=== PATIENT | male | born 1970 | race Caucasian/White ===

== ENCOUNTER 2016-09-26 06:57 | Day surgery (SDC) | payer OTHER ==
[~2016-09-26] VITALS: Ht 182.9 cm; Wt 82.1 kg
[~2016-09-26 06:57] MED LIST: BENTYL 20MG20 MG/TAB PO; BICARSIM FORTE1 TA1; CLARITIN 1010 MG/TAB PO; FENTANYL 50MCG TD; FLAGYL500 MG PO; HUMIRA40 MG/0.1 SQ; IMITREX 6M6 MG/0.5 M SQ; PREDNISONE10 MG PO; SYNTHROID0.2 MG/TAB PO; ZESTRIL 20MG TA20 MG PO
[2016-09-26 07:27] VITALS: BP 139/101; PULSE 98; TEMP 98.4
[2016-09-26] MEDS ORDERED: SYNTHROID0.175 MG PO (07:47)
[2016-09-26] MEDS ORDERED: AVINZA60 MG PO (07:49)
[2016-09-26] MEDS ORDERED: MORPHINE 1515 MG/TAB PO (07:49)
[2016-09-26] MEDS ORDERED: MS CONTIN 115 MG/TAB PO (07:50)
[2016-09-26] MEDS ORDERED: MS CONTIN 660 MG/TAB PO ×2 (07:51→07:53)
[2016-09-26 11:15] VITALS: BP 116/68; PULSE 68
[2016-09-26 11:30] VITALS: BP 111/66; PULSE 76
[2016-09-26 11:45] VITALS: BP 119/75; PULSE 76
[2016-09-26 12:10] VITALS: BP 125/85; PULSE 77
[2016-09-26 13:53] VITALS: BP 106/68; PULSE 68; TEMP 97.7
== END 2016-09-26 12:40 | disposition home or self-care (01) ==
LOC: SDCO 06:57
DX: T84.84XA Pain due to internal orthopedic prosthetic devices, implants and grafts, initial encounter (principal); M19.90 Unspecified osteoarthritis, unspecified site; Z98.1 Arthrodesis status; Q66.89 Other specified congenital deformities of feet; I10 Essential (primary) hypertension; E03.9 Hypothyroidism, unspecified; K50.90 Crohn's disease, unspecified, without complications; G43.909 Migraine, unspecified, not intractable, without status migrainosus
CPT/HCPCS: J1100; J2250; J2405; J2704; J2795; J3010; J7120

== ENCOUNTER 2017-01-04 21:18 | Emergency (ER) | payer OTHER ==
[~2017-01-04] VITALS: Ht 182.9 cm; Wt 82.7 kg
[~2017-01-04 21:18] MED LIST changes: +AVINZA60 MG PO; +MORPHINE 1515 MG/TAB PO; +MS CONTIN 115 MG/TAB PO; +MS CONTIN 660 MG/TAB PO; +SYNTHROID0.175 MG PO
[2017-01-04 21:20] VITALS: BP 142/94; TEMP 97.9
[2017-01-04 22:00] LABS: BASO # 0.1 (0.0-0.2); BASO % 0.7 % (0.0-2.0); EOS # 0.1 (0.0-0.7); GRAN # 8.4 (1.4-6.5); GRAN % 68.8 % (42.2-75.2); HEMATOCRIT 49.8 % (42.0-52.0); HEMOGLOBIN 18.4 g/dl (13.5-18.0); LYMPH # 2.6 (1.2-3.4); LYMPH % 21.4 % (20.0-51.0); MEAN CELL VOLUME 84 fl (80.0-100.0); MEAN CORPUSCULAR HEMOGLOBIN 31 pg (27.0-31.0); MEAN CORPUSCULAR HGB CONC 37 g/dl (33.0-37.0); MEAN PLATELET VOLUME 9.1 fl (7.4-10.4); MONO # 0.9 (0.1-0.6); MONO % 7.7 % (1.7-9.3); PLATELET COUNT 398 K/mm3 (130-400); RED BLOOD COUNT 5.96 M/mm3 (4.20-5.60); REDCELL DISTRIBUTION WIDTH-CV 12.2 % (11.5-14.5); WHITE BLOOD COUNT 12.2 K/mm3 (4.8-10.8)
[2017-01-04 22:32] LABS: ADJUSTED CALCIUM 8.9 mg/dL (8.4-10.2); ALBUMIN 4.8 gm/dL (3.5-5.0); BILIRUBIN,TOTAL 2.2 mg/dL (0.0-1.0); CALCIUM 9.5 mg/dL (8.4-10.2); CREATININE, serum 0.8 mg/dL (0.66-1.25); POTASSIUM 3.7 mmol/L (3.4-5.0); TOTAL PROTEIN 8.2 gm/dL (6.4-8.2)
[2017-01-04 23:50] VITALS: PULSE 70
== END 2017-01-04 23:50 | disposition home or self-care (01) ==
LOC: COL.ER 21:18
PROVIDERS: Emergency Medicine
DX: E86.9 Volume depletion, unspecified (principal); R10.9 Unspecified abdominal pain; K50.90 Crohn's disease, unspecified, without complications; G43.909 Migraine, unspecified, not intractable, without status migrainosus
CPT/HCPCS: J2765; J2930; J3010; J7030; Q9967

== ENCOUNTER → 2018-08-29 | Outpatient (CLI) | payer OTHER ==
[~2018-08-29] MED LIST changes: +ZITHROMAX500 M2 PO
== END ==
LOC: MHCPAIN 09:02
DX: G89.29 Other chronic pain (principal); M79.2 Neuralgia and neuritis, unspecified; M25.579 Pain in unspecified ankle and joints of unspecified foot
CPT/HCPCS: G0463

== ENCOUNTER → 2018-08-30 | Outpatient (CLI) | payer OTHER | LOC: COL.RAD 07:57 | DX: K50.912 Crohn's disease, unspecified, with intestinal obstruction (principal) | CPT/HCPCS: A9585 ==

== ENCOUNTER 2018-09-03 12:52 | Inpatient (IN) | payer OTHER ==
[2018-09-03] VITALS (10 sets, daily range): BP systolic 109–117; BP diastolic 59–84; PULSE 71–95; TEMP 98.1–99.2
[~2018-09-03] VITALS: Ht 182.9 cm; Wt 77.3 kg
[2018-09-03 13:38] LABS: BASO # 0.1 (0.0-0.2); BASO % 0.4 % (0.0-2.0); EOS # 0.1 (0.0-0.7); EOS % 0.6 % (0-4.0); GRAN % 77.9 % (42.2-75.2); HEMOGLOBIN 15.2 g/dl (13.5-18.0); LYMPH # 1.6 (1.2-3.4); MEAN CELL VOLUME 84 fl (80.0-100.0); MEAN CORPUSCULAR HEMOGLOBIN 30 pg (27.0-31.0); MEAN CORPUSCULAR HGB CONC 35 g/dl (33.0-37.0); MONO # 1.4 (0.1-0.6); MONO % 9.8 % (1.7-9.3); PLATELET COUNT 350 K/mm3 (130-400); REDCELL DISTRIBUTION WIDTH-CV 12.3 % (11.5-14.5)
[2018-09-03 13:46] LABS: ALBUMIN 3.8 gm/dL (3.5-5.0); BILIRUBIN,TOTAL 1.4 mg/dL (0.0-1.0); CALCIUM 8.8 mg/dL (8.4-10.2); CREATININE, serum 0.85 (0.66-1.25); POTASSIUM 3.3 mmol/L (3.4-5.0); TOTAL PROTEIN 7.1 gm/dL (6.4-8.2)
[2018-09-03 15:27] LABS: COLLECTION METHOD CLEAN CATCH
[2018-09-03] MEDS ORDERED: FLAGYL500 MG PO (15:31)
[2018-09-03] MEDS ORDERED: CANASA 1000MG1000 MG RC (15:32)
[2018-09-03 15:33] LABS: MUCOUS Present /lpf; PH 5 (5-8); SQUAMOUS EPITHELIAL 0-2 /hpf; URINE APPEARANCE Clear; URINE BACTERIA Rare /hpf; URINE BILIRUBIN Negative (NEGATIVE); URINE BLOOD 1+ (NEGATIVE); URINE COLOR Yellow; URINE GLUCOSE Negative (NEGATIVE); URINE KETONE Negative (NEGATIVE); URINE LEUKOCYTE ESTERASE Negative (NEGATIVE); URINE NITRATE Negative (NEGATIVE); URINE PROTEIN(semi-quant) Negative (NEGATIVE); URINE UROBILINOGEN Negative (NEGATIVE)
--- NOTE | 2018-09-03 17:15 | NUR ---
Pt arrived to floor at this time via bed with OR staff. Alert and oriented. Requesting ice water and jello. Minimal scant drainage to mirlande pad. Denies apin. VSS. IVF to RFA with potassium infusing. will ocntinue to monitor.
--- NOTE | 2018-09-03 18:27 | NUR ---
Pt doing well. Taking PO well. Changed mirlande gauze from SS drainage. Pt reports pain to area, PRN pain meds provided per request. Will give bedside shift report to nightshift nurse who will resume care.
--- NOTE | 2018-09-03 20:20 | NUR ---
Pt. sitting up in bed watchint tv at this time. Pt. is A&OX3, assessment complete. INT to rt. hand patent. Pt. reports pain at a 3 on pain scale at this time. Dressing to perirectal abscess changed at this time. 4X4's and mirlande pad. Pt. denies further needs, call light within reach.
[2018-09-04 04:11] VITALS: BP 109/67; PULSE 60; TEMP 97.9
--- NOTE | 2018-09-04 06:35 | NUR ---
Pt. slept off and on through the night. Pt. remains A&OX3. INT to rt. forearm patent. Pt. reports pain at a 2-3 this am. Gave pain meds per orders. Pt. denies further needs, call light within reach.
[2018-09-04 07:06] LABS: HEMOGLOBIN 13.4 g/dl (13.5-18.0); MEAN CELL VOLUME 87 fl (80.0-100.0); MEAN CORPUSCULAR HEMOGLOBIN 30 pg (27.0-31.0); MEAN CORPUSCULAR HGB CONC 34 g/dl (33.0-37.0); MEAN PLATELET VOLUME 9.2 fl (7.4-10.4); PLATELET COUNT 307 K/mm3 (130-400); RED BLOOD COUNT 4.46 M/mm3 (4.20-5.60); REDCELL DISTRIBUTION WIDTH-CV 12.5 % (11.5-14.5)
[2018-09-04 07:17] LABS: ALBUMIN 2.9 gm/dL (3.5-5.0); BILIRUBIN,TOTAL 1.1 mg/dL (0.0-1.0); CALCIUM 8.4 mg/dL (8.4-10.2); CREATININE, serum 0.84 (0.66-1.25); POTASSIUM 4.2 mmol/L (3.4-5.0); TOTAL PROTEIN 5.7 gm/dL (6.4-8.2)
[2018-09-04 07:45] VITALS: BP 114/71; PULSE 68; TEMP 97.9
[2018-09-04 07:57] LABS: BASOPHIL 3 % (0-2); EOSINOPHIL 4 % (0-4); LYMPHOCYTE 28 % (20.0-51.0); MYELOCYTE 1 % (0-0); NEUTROPHILS 54 % (42.0-75.2); PLATELET ESTIMATE NORMAL (NORMAL)
--- NOTE | 2018-09-04 10:03 | NUR ---
MARIZOL met with the patient to discuss a discharge plan. The patient lives in [place] with his and their two children. The patient does not use DME and reports independence with ADLs. The patient's PCP is Dr. Thornton on [facility]. The patient receives his [facility]. The patient reports no difficulties obtaining his medications. The patient does not have advanced directives in the EMR, but reports he does have them completed. The patient plans to return home upon discharge. There are no additional needs at this time.
--- NOTE | 2018-09-04 10:25 | NUR ---
Initial visit; Patient thanked Land Reclamation Specialist for looking in on him and offering God's blessings.
--- NOTE | 2018-09-04 10:30 | NUR ---
Patient alert and oriented, answers questions appropriately, see assessment. Abscess area with slight redness noted, scant amount serosanguinous drainage. C/o mild pain to abscess area. 4x4 and mesh panties in place. No other c/o at this time.
[2018-09-04] MEDS ORDERED: SUBOXONE 2 MG-01 TAB SL (11:10)
[2018-09-04] MEDS ORDERED: LYRICA200 MG PO (11:10)
[2018-09-04 11:32] VITALS: BP 118/67; PULSE 82; TEMP 98.4
--- NOTE | 2018-09-04 12:40 | NUR ---
Discharge instructions reviewed with patient, verbalized understanding. Discharged ambulatory to auto/home at 1240.
== END 2018-09-04 12:40 | disposition home or self-care (01) | DRG 854 ==
LOC: COL.ER 12:52 → SURG 14:26 → EDBEDREQ 14:37 → SURG 09-04 12:40
PROVIDERS: Family Medicine; Internal Medicine; ADMIT Surgery
PROC: 0J9B0ZZ Drainage of Perineum Subcutaneous Tissue and Fascia, Open Approach (ICD-10-PCS; principal; 2018-09-03 15:00)
DX: A41.9 Sepsis, unspecified organism (principal); K61.1 Rectal abscess; K50.914 Crohn's disease, unspecified, with abscess; E87.6 Hypokalemia; G89.29 Other chronic pain; E03.9 Hypothyroidism, unspecified; G43.909 Migraine, unspecified, not intractable, without status migrainosus; Z88.0 Allergy status to penicillin; Z88.9 Allergy status to unspecified drugs, medicaments and biological substances
CPT/HCPCS: 99222; 99232-AI; J1170; J1885; J2250; J2405; J2704; J3010; J3480; J7030; J7120

== ENCOUNTER 2018-12-29 09:36 | Emergency (ER) | payer OTHER ==
[~2018-12-29] VITALS: Ht 182.9 cm; Wt 75.0 kg
[~2018-12-29 09:36] MED LIST changes: +CANASA 1000MG1000 MG RC; +LYRICA200 MG PO; +SUBOXONE 2 MG-01 TAB SL
[2018-12-29] MEDS ORDERED: CIPRO 500MG TA500 MG PO (09:55)
[2018-12-29 09:56] VITALS: TEMP 98.4
[2018-12-29 10:26] LABS: BASO # 0.1 (0.0-0.2); BASO % 0.7 % (0.0-2.0); EOS # 0.1 (0.0-0.7); EOS % 0.8 % (0-4.0); GRAN # 11.7 (1.4-6.5); HEMATOCRIT 45.7 % (42.0-52.0); HEMOGLOBIN 15.9 g/dl (13.5-18.0); LYMPH # 1.6 (1.2-3.4); LYMPH % 10.7 % (20.0-51.0); MEAN CELL VOLUME 85 fl (80.0-100.0); MEAN CORPUSCULAR HEMOGLOBIN 29 pg (27.0-31.0); MEAN CORPUSCULAR HGB CONC 35 g/dl (33.0-37.0); MONO # 1.1 (0.1-0.6); MONO % 7.3 % (1.7-9.3); PLATELET COUNT 403 K/mm3 (130-400); REDCELL DISTRIBUTION WIDTH-CV 12.4 % (11.5-14.5)
[2018-12-29 10:27] LABS: PROTHROMBIN TIME 11.6 SECONDS (9.7-12.8)
[2018-12-29 10:29] LABS: PARTIAL THROMBOPLASTIN TIME 41.2 SECONDS (26.0-37.0)
[2018-12-29 10:36] LABS: ALBUMIN 4.1 gm/dL (3.5-5.0); BILIRUBIN,TOTAL 0.6 mg/dL (0.0-1.0); C-REACTIVE PROTEIN 0.8 mg/dL (0.0-0.9); CALCIUM 9.1 mg/dL (8.4-10.2); CREATININE, serum 0.74 (0.66-1.25); TOTAL PROTEIN 7.3 gm/dL (6.4-8.2)
[2018-12-29 11:48] LABS: COLLECTION METHOD CLEAN CATCH
[2018-12-29 12:03] LABS: MUCOUS Present /lpf; PH 5 (5-8); SQUAMOUS EPITHELIAL None Seen /hpf; URINE APPEARANCE Clear; URINE BACTERIA None Seen /hpf; URINE BILIRUBIN Negative (NEGATIVE); URINE BLOOD 1+ (NEGATIVE); URINE COLOR Yellow; URINE GLUCOSE Negative (NEGATIVE); URINE KETONE Negative (NEGATIVE); URINE LEUKOCYTE ESTERASE Negative (NEGATIVE); URINE NITRATE Negative (NEGATIVE); URINE PROTEIN(semi-quant) Negative (NEGATIVE); URINE RBC 0-2 /hpf; URINE UROBILINOGEN Negative (NEGATIVE)
[2018-12-29] MEDS ORDERED: PERCOCET 325 MG1 TA2 PO (16:09)
[2018-12-29 16:20] VITALS: BP 124/85; PULSE 96
[2019-01-02] MEDS ORDERED: NORCO 325 MG-51 TAB PO ×2 (17:37→17:39)
== END 2018-12-29 16:30 | disposition home or self-care (01) ==
LOC: COL.ER 09:36
PROVIDERS: Emergency Medicine
DX: L02.215 Cutaneous abscess of perineum (principal); K50.90 Crohn's disease, unspecified, without complications
CPT/HCPCS: A4216; J1170; J2405; J3010; J7030; J7120; Q9967

== ENCOUNTER 2019-01-16 07:32 | Inpatient (IN) | payer OTHER ==
[~2019-01-16] VITALS: Ht 182.9 cm; Wt 71.8 kg
[~2019-01-16 07:32] MED LIST changes: +CIPRO 500MG TA500 MG PO; +NORCO 325 MG-51 TAB PO; +PERCOCET 325 MG1 TA2 PO
[2019-01-16 08:12] LABS: BASO # 0.1 (0.0-0.2); BASO % 0.5 % (0.0-2.0); EOS # 0.2 (0.0-0.7); EOS % 1.1 % (0-4.0); GRAN # 10.9 (1.4-6.5); GRAN % 80.1 % (42.2-75.2); HEMOGLOBIN 15.5 g/dl (13.5-18.0); LYMPH # 1.6 (1.2-3.4); LYMPH % 11.4 % (20.0-51.0); MEAN CELL VOLUME 84 fl (80.0-100.0); MEAN CORPUSCULAR HEMOGLOBIN 30 pg (27.0-31.0); MEAN CORPUSCULAR HGB CONC 36 g/dl (33.0-37.0); MEAN PLATELET VOLUME 9.1 fl (7.4-10.4); MONO # 0.9 (0.1-0.6); MONO % 6.5 % (1.7-9.3); PLATELET COUNT 349 K/mm3 (130-400); RED BLOOD COUNT 5.14 M/mm3 (4.20-5.60); REDCELL DISTRIBUTION WIDTH-CV 12.8 % (11.5-14.5)
[2019-01-16 08:25] LABS: ALANINE AMINOTRANSFERASE 16 U/L (21-72); ALBUMIN 4.2 gm/dL (3.5-5.0); ALKALINE PHOSPHATASE 51 U/L (50-136); ANION GAP 9 mmol/L (7-16); AST,SGOT 28 U/L (15-37); BILIRUBIN,TOTAL 1.3 mg/dL (0.0-1.0); BLOOD UREA NITROGEN 11 mg/dL (9-20); C-REACTIVE PROTEIN 0.7 mg/dL (0.0-0.9); CARBON DIOXIDE 27 mmol/L (22-30); CHLORIDE 103 mmol/L (98-107); CREATININE, serum 0.84 (0.66-1.25); GLUCOSE 96 mg/dL (74-106); POTASSIUM 3.3 mmol/L (3.4-5.0); SODIUM 139 mmol/L (137-145); TOTAL PROTEIN 7.4 gm/dL (6.4-8.2)
[2019-01-16 08:32] LABS: LIPASE < 10 U/L (23-300)
[2019-01-16 09:21] LABS: COLLECTION METHOD CLEAN CATCH
[2019-01-16 09:38] LABS: MUCOUS Present /lpf; PH 6 (5-8); SQUAMOUS EPITHELIAL 0-2 /hpf; URINE APPEARANCE Clear; URINE BACTERIA None Seen /hpf; URINE BILIRUBIN Negative (NEGATIVE); URINE BLOOD Negative (NEGATIVE); URINE COLOR Yellow; URINE GLUCOSE Negative (NEGATIVE); URINE KETONE Negative (NEGATIVE); URINE LEUKOCYTE ESTERASE Negative (NEGATIVE); URINE NITRATE Negative (NEGATIVE); URINE PROTEIN(semi-quant) Negative (NEGATIVE); URINE UROBILINOGEN Negative (NEGATIVE)
--- NOTE | 2019-01-16 12:20 | NUR ---
Pt arrives to medical unit rm [id number] from ED via cart, awake and alert. Pt reports pain to left side and mid abd 9-10 out of 10 on pain scale. Telephone order received for PRN pain medication, nurse to dose. 4 mg Morphine administered. Call light in reach.
[2019-01-16 12:30] VITALS: BP 143/94; PULSE 66; TEMP 98
[2019-01-16 12:33] VITALS: BP 143/94; PULSE 66; TEMP 98
[2019-01-16 16:46] VITALS: BP 146/94; PULSE 71; TEMP 97.4
--- NOTE | 2019-01-16 17:31 | NUR ---
Pt reports PRN Dilaudid is decreasing pain but only to 7 out of 10 on pain scale, requesting medication for gas pain. Pt reports passing flatus about 20 minutes ago, no BM today. Provider notified. See orders.
[2019-01-16 19:24] VITALS: BP 141/89; PULSE 77; TEMP 98.8
--- NOTE | 2019-01-16 20:30 | NUR ---
Resting in bed. Assessment complete. Lungs clear. Heart sounds normal. Bowels active x4. Pulses strong throughout. No edema noted. Denies needs. Reports 7/10 pain at this time. Provided with PRN dilaudid. Call light in reach.
--- NOTE | 2019-01-16 22:21 | NUR ---
Patient reports headache from dilaudid. Would like toradol and pain medication to be changed back to morphine. Spoke with Dr. Wilcox. Will change orders.
[2019-01-16 23:57] VITALS: BP 133/85; PULSE 89; TEMP 98.3
--- NOTE | 2019-01-17 01:00 | NUR ---
Resting in bed asleep and snoring. Will reassess pain when awake. Call light in reach.
[2019-01-17 04:09] VITALS: BP 137/94; PULSE 62; TEMP 98
--- NOTE | 2019-01-17 06:21 | NUR ---
Patient required dilaudid for pain earlier in night which caused a headache. Was changed to morphine 2mg Q2H by Dr. Wilcox. Patient had also requested toradol. Order was added. Patient took x3 doses of morphine throughout night. Pain level with this AM dose is 8/10 in left ABD. Denies other needs at this time. Call light in reach.
[2019-01-17 06:42] LABS: BASO # 0.1 (0.0-0.2); BASO % 0.6 % (0.0-2.0); EOS # 0.2 (0.0-0.7); EOS % 1.6 % (0-4.0); GRAN # 7.2 (1.4-6.5); GRAN % 72.8 % (42.2-75.2); HEMATOCRIT 40.6 % (42.0-52.0); HEMOGLOBIN 14.2 g/dl (13.5-18.0); LYMPH # 1.5 (1.2-3.4); LYMPH % 14.7 % (20.0-51.0); MEAN CELL VOLUME 86 fl (80.0-100.0); MEAN CORPUSCULAR HEMOGLOBIN 30 pg (27.0-31.0); MEAN CORPUSCULAR HGB CONC 35 g/dl (33.0-37.0); MEAN PLATELET VOLUME 9.1 fl (7.4-10.4); MONO % 9.9 % (1.7-9.3); PLATELET COUNT 344 K/mm3 (130-400); RED BLOOD COUNT 4.75 M/mm3 (4.20-5.60); REDCELL DISTRIBUTION WIDTH-CV 12.9 % (11.5-14.5)
[2019-01-17 06:54] LABS: ALBUMIN 3.7 gm/dL (3.5-5.0); BILIRUBIN,TOTAL 0.7 mg/dL (0.0-1.0); CALCIUM 8.6 mg/dL (8.4-10.2); CREATININE, serum 0.83 (0.66-1.25); POTASSIUM 3.7 mmol/L (3.4-5.0); TOTAL PROTEIN 6.7 gm/dL (6.4-8.2)
--- NOTE | 2019-01-17 07:18 | NUR ---
Report given to UNA Lambert
[2019-01-17 07:41] VITALS: BP 152/93; PULSE 71; TEMP 98.1
--- NOTE | 2019-01-17 10:18 | NUR ---
SW met with the patient to discuss discharge plan. The patient lives in [place] with his (Sandie #[phone]) and their two children. He reports independence with ADLs and does not have any DME. The patient's PCP is Dr. Hossein Thornton at [facility] and he also receives his medications there or will utilize the [facility]. He reports no difficulties obtaining his meds. The patient does not have advanced directives in EMR, but he states that he does have them completed. He states that his is his DPOA-HC. The patient plans to return back home with his family upon discharge. No additional needs at this time.
--- NOTE | 2019-01-17 11:05 | NUR ---
First visit from the judicial administrative assistant. No needs right now.
--- NOTE | 2019-01-17 11:33 | NUR ---
Dr. Rodriguez called and he plans to see the pt later this afternoon.
[2019-01-17 11:44] VITALS: BP 141/90; PULSE 83; TEMP 98.7
--- NOTE | 2019-01-17 15:24 | NUR ---
Pt alert and oriented. Pt pain rated at 8/10 and is managed with PRN Morphine every 2 hours. Pt potassium being replaced per protocol. Pt has Seton drain in place and it leaks if pt milks the area between the anus and penis shaft. Pt skin CDI and no redness noted. Pt wears a pad for any leakage. Pt has had 1150 out this shift of dark yellow urine. Pt has call light in reach and denies needs at this time.
[2019-01-17 17:06] VITALS: BP 151/89; PULSE 78; TEMP 98.8
--- NOTE | 2019-01-17 18:06 | NUR ---
Pt resting in bed and eating some this shift. Pt has liquid bowel movement after meals. Pt reports on was dark brown to black in color. Hat is now in toilet to catch stools. Pt pain managed with PRN Morphine. Pt has call light in reach.
--- NOTE | 2019-01-17 18:48 | NUR ---
Pt report given to Clei HEART.
[2019-01-17 19:22] VITALS: BP 140/87; PULSE 74; TEMP 98.7
--- NOTE | 2019-01-17 19:30 | NUR ---
Report received from UNA Lambert. Patient provided with PRN morphine for 7/10 ABD pain.
--- NOTE | 2019-01-17 21:20 | NUR ---
Resting in bed. Assessment completed. Seton drain with brown/red drainage present. Patient reports 7/10 ABD pain. Provided with PRN morphine at this time. Denies other needs. Call light in reach.
--- NOTE | 2019-01-17 21:29 | NUR ---
Reports pain 7/10 in ABD. Provided with PRN morphine.
[2019-01-17 23:06] VITALS: BP 139/88; PULSE 74; TEMP 98.7
[2019-01-18 03:17] VITALS: BP 153/97; PULSE 67; TEMP 98.8
--- NOTE | 2019-01-18 05:21 | NUR ---
Rating ABD pain 9/10. Provided with PRN morphine and toradol at patient request. Denies other needs at this time. Will monitor.
--- NOTE | 2019-01-18 06:31 | NUR ---
Patient required morphine and toradol throughout night for ABD pain. Reported some umbilical discomfort at scaring site on ABD and patient stated when pressure applied to left ABD felt in anus. Otherwise uneventful night. Resting in bed with AM. Denies needs. Call light in reach.
[2019-01-18 06:50] LABS: BASO # 0.1 (0.0-0.2); BASO % 0.7 % (0.0-2.0); EOS # 0.2 (0.0-0.7); GRAN # 6.9 (1.4-6.5); GRAN % 71.2 % (42.2-75.2); HEMATOCRIT 40.7 % (42.0-52.0); HEMOGLOBIN 13.9 g/dl (13.5-18.0); LYMPH # 1.6 (1.2-3.4); LYMPH % 16.9 % (20.0-51.0); MEAN CELL VOLUME 88 fl (80.0-100.0); MEAN CORPUSCULAR HEMOGLOBIN 30 pg (27.0-31.0); MEAN CORPUSCULAR HGB CONC 34 g/dl (33.0-37.0); MEAN PLATELET VOLUME 9.5 fl (7.4-10.4); MONO # 0.9 (0.1-0.6); MONO % 8.9 % (1.7-9.3); PLATELET COUNT 359 K/mm3 (130-400); RED BLOOD COUNT 4.65 M/mm3 (4.20-5.60); REDCELL DISTRIBUTION WIDTH-CV 13.1 % (11.5-14.5)
[2019-01-18 07:08] LABS: CALCIUM 8.7 mg/dL (8.4-10.2); CREATININE, serum 0.78 (0.66-1.25); POTASSIUM 3.4 mmol/L (3.4-5.0)
--- NOTE | 2019-01-18 07:20 | NUR ---
Report given to UNA Concepcion
[2019-01-18 07:34] VITALS: BP 145/88; PULSE 84; TEMP 99.1
--- NOTE | 2019-01-18 08:00 | NUR ---
PATIENT IS RESTING IN BED THIS MORNING. PATIENT IS A&OX4. VSS. BOWEL SOUNDS ACTIVE ALL FOUR QUADRANTS. PATIENT TOLERATING DIET WITHOUT ANY COMPLAINTS OF N/V. POSITIVE PEDAL PULSES EQUAL BILATERALLY. SCD'S TO BLE. IV FLUIDS INFUSING TO LEFT FOREARM IV VIA PUMP. PERIANAL SETON DRAIN TO DEPENDENT DRAINAGE. CALL LIGHT WITHIN REACH. PATIENT DENIES ANY OTHER NEEDS AT THIS TIME.
[2019-01-18] MEDS ORDERED: NORCO 325 MG-51 TAB PO (09:51)
[2019-01-18] MEDS ORDERED: NORCO 325 MG-101 TAB PO (09:52)
[2019-01-18 11:55] VITALS: BP 147/91; PULSE 76; TEMP 98.9
--- NOTE | 2019-01-18 14:18 | NUR ---
LEFT FOREARM INT DISCONTINUED PER PENDING DISCHARGE. TIP INTACT. PATIENT TOLERATED WELL. DISCHARGE INSTRUCTIONS REVIEWED WITH PATIENT. ALL QUESTIONS ANSWERED. PATIENT PERSONAL BELONGINGS GATHERED. PATIENT AMBULATED WITH MEDICAL STAFF TO PERSONAL VEHICLE. PATIENT DISCHARGED.
== END 2019-01-18 14:18 | disposition home or self-care (01) | DRG 392 ==
LOC: COL.ER 07:32 → MEDICAL 11:02
PROVIDERS: Emergency Medicine; Nurse Practitioner Family; Physician Assistant; ADMIT Hospitalist
DX: R10.9 Unspecified abdominal pain (principal); K50.90 Crohn's disease, unspecified, without complications; L02.215 Cutaneous abscess of perineum; I10 Essential (primary) hypertension; G43.909 Migraine, unspecified, not intractable, without status migrainosus; E03.9 Hypothyroidism, unspecified; K21.9 Gastro-esophageal reflux disease without esophagitis; E87.6 Hypokalemia; R63.4 Abnormal weight loss; Z68.21 Body mass index [BMI] 21.0-21.9, adult; Z79.891 Long term (current) use of opiate analgesic; Z88.0 Allergy status to penicillin
CPT/HCPCS: 99232-AI; 99239; A4216; J0696; J1170; J1885; J1956; J2270; J2405; J2550; J3480; J7030; Q9967

== ENCOUNTER → 2019-07-04 | Outpatient (CLI) | payer OTHER ==
[~2019-07-04] MED LIST changes: +NORCO 325 MG-101 TAB PO
[2019-07-04 20:49] LABS: BASO # 0.1 (0.0-0.2); EOS # 0.3 (0.0-0.7); EOS % 2.5 % (0-4.0); GRAN # 6.9 (1.4-6.5); GRAN % 66.8 % (42.2-75.2); HEMATOCRIT 44.5 % (42.0-52.0); HEMOGLOBIN 15.8 g/dl (13.5-18.0); LYMPH # 2.5 (1.2-3.4); LYMPH % 24.1 % (20.0-51.0); MEAN CELL VOLUME 89 fl (80.0-100.0); MEAN CORPUSCULAR HEMOGLOBIN 32 pg (27.0-31.0); MEAN CORPUSCULAR HGB CONC 36 g/dl (33.0-37.0); MEAN PLATELET VOLUME 9.6 fl (7.4-10.4); MONO # 0.6 (0.1-0.6); MONO % 5.3 % (1.7-9.3); PLATELET COUNT 319 K/mm3 (130-400); RED BLOOD COUNT 5.01 M/mm3 (4.20-5.60); REDCELL DISTRIBUTION WIDTH-CV 12.6 % (11.5-14.5)
[2019-07-04 21:06] LABS: ALBUMIN 4.6 gm/dL (3.5-5.0); BILIRUBIN,TOTAL 1.9 mg/dL (0.0-1.0); CALCIUM 9.6 mg/dL (8.4-10.2); CREATININE, serum 0.88 (0.66-1.25); POTASSIUM 4.7 mmol/L (3.4-5.0); TOTAL PROTEIN 7.7 gm/dL (6.4-8.2)
== END ==
LOC: ZCOL.LAB 20:22
DX: Z51.81 Encounter for therapeutic drug level monitoring (principal)

== ENCOUNTER → 2019-09-30 | Outpatient (CLI) | payer OTHER | LOC: COL.RAD 07:30 | DX: K50.012 Crohn's disease of small intestine with intestinal obstruction (principal) | CPT/HCPCS: A9585 ==

== ENCOUNTER → 2019-10-16 | Outpatient (CLI) | payer OTHER | LOC: COL.LAB 09:38 | DX: Z12.31 Encounter for screening mammogram for malignant neoplasm of breast (principal) ==

== ENCOUNTER → 2020-01-30 | Outpatient (CLI) | payer OTHER | LOC: COL.RAD 06:42 | DX: Z00.00 Encounter for general adult medical examination without abnormal findings (principal); K50.90 Crohn's disease, unspecified, without complications | CPT/HCPCS: A9585 ==

== ENCOUNTER → 2020-08-17 | Outpatient (CLI) | payer OTHER | LOC: ZCOL.LAB 09:49 | DX: Z20.822 Contact with and (suspected) exposure to COVID-19 (principal) ==

== ENCOUNTER 2020-08-29 13:47 | Emergency (ER) | payer OTHER ==
[~2020-08-29] VITALS: Ht 182.9 cm; Wt 70.0 kg
[2020-08-29 13:53] VITALS: TEMP 98.4
[2020-08-29 15:35] LABS: BASO # 0.1 (0.0-0.2); BASO % 0.7 % (0.0-2.0); EOS # 0.1 (0.0-0.7); EOS % 1.3 % (0-4.0); GRAN % 63.2 % (42.2-75.2); HEMATOCRIT 44.6 % (42.0-52.0); HEMOGLOBIN 16.1 g/dl (13.5-18.0); LYMPH # 2.5 (1.2-3.4); MEAN CELL VOLUME 88 fl (80.0-100.0); MEAN CORPUSCULAR HEMOGLOBIN 32 pg (27.0-31.0); MEAN CORPUSCULAR HGB CONC 36 g/dl (33.0-37.0); MEAN PLATELET VOLUME 9.1 fl (7.4-10.4); MONO # 1.3 (0.1-0.6); MONO % 11.3 % (1.7-9.3); PLATELET COUNT 332 K/mm3 (130-400); REDCELL DISTRIBUTION WIDTH-CV 12.8 % (11.5-14.5)
[2020-08-29 15:41] LABS: ALANINE AMINOTRANSFERASE 46 U/L (4-49); ALBUMIN 4.3 gm/dL (3.5-5.0); ALKALINE PHOSPHATASE 52 U/L (50-136); ANION GAP 7 mmol/L (7-16); AST,SGOT 41 U/L (15-37); BILIRUBIN,TOTAL 1.3 mg/dL (0.0-1.0); BLOOD UREA NITROGEN 19 mg/dL (9-20); CALCIUM 8.9 mg/dL (8.4-10.2); CARBON DIOXIDE 27 mmol/L (22-30); CHLORIDE 105 mmol/L (98-107); CREATININE, serum 0.99 (0.66-1.25); GLUCOSE 100 mg/dL (74-106); POTASSIUM 3.9 mmol/L (3.4-5.0); SODIUM 139 mmol/L (137-145); TOTAL PROTEIN 7.8 gm/dL (6.4-8.2)
[2020-08-29 15:42] LABS: C-REACTIVE PROTEIN < 0.5 mg/dL (0.0-0.9)
[2020-08-29 17:25] VITALS: BP 132/82; PULSE 77
== END 2020-08-29 17:28 | disposition short-term general hospital (02) ==
LOC: COL.ER 13:47
PROVIDERS: Physician Assistant
DX: T81.30XA Disruption of wound, unspecified, initial encounter (principal); K61.0 Anal abscess; I10 Essential (primary) hypertension; E03.9 Hypothyroidism, unspecified; Z88.8 Allergy status to other drugs, medicaments and biological substances; Z79.890 Hormone replacement therapy; X58.XXXA Exposure to other specified factors, initial encounter
CPT/HCPCS: J0696; J1170; J7030

== ENCOUNTER 2021-09-07 18:03 | Emergency (ER) | payer OTHER ==
[~2021-09-07] VITALS: Ht 182.9 cm; Wt 77.3 kg
[2021-09-07 20:13] LABS: BASO % 0.5 % (0.0-2.0); EOS # 0.1 K/mm3 (0.0-0.7); EOS % 1.4 % (0.0-4.0); GRAN # 5.1 K/mm3 (1.4-6.5); LYMPH # 2.1 K/mm3 (1.2-3.4); MEAN CELL VOLUME 89 fl (80.0-100.0); MEAN CORPUSCULAR HEMOGLOBIN 32 pg (27-31); MEAN CORPUSCULAR HGB CONC 35 g/dl (33.0-37.0); MEAN PLATELET VOLUME 9.6 fl (7.4-10.4); MONO # 0.6 K/mm3 (0.1-0.6); MONO % 7.8 % (1.7-9.3); PLATELET COUNT 283 K/mm3 (130-400); RED BLOOD COUNT 5.38 M/mm3 (4.20-5.60); REDCELL DISTRIBUTION WIDTH-CV 12.3 % (11.5-14.5)
[2021-09-07 20:24] LABS: ALBUMIN 4.5 gm/dL (3.5-5.0); BILIRUBIN,TOTAL 2.1 mg/dL (0.2-1.2); CALCIUM 9.1 mg/dL (8.4-10.2); CREATININE, serum 1.03 mg/dL (0.72-1.25); POTASSIUM 3.9 mmol/L (3.5-4.5); TOTAL PROTEIN 8.2 gm/dL (6.2-8.1)
[2021-09-07] MEDS ORDERED: PROMETHAZINE12.5 M5 PO (21:50)
[2021-09-07 22:17] LABS: COLLECTION METHOD CLEAN CATCH
[2021-09-07 22:26] LABS: MUCOUS Present (NOT PRESENT); PH 5 (5-8); SQUAMOUS EPITHELIAL None Seen /hpf (0-10); URINE APPEARANCE Clear (CLEAR/HAZY); URINE BACTERIA None Seen /hpf (NONE SEEN); URINE BILIRUBIN Negative (NEGATIVE); URINE BLOOD Negative (NEGATIVE); URINE COLOR Yellow (YELLOW); URINE GLUCOSE Negative (NEGATIVE); URINE KETONE 1+ (NEGATIVE); URINE LEUKOCYTE ESTERASE Negative (NEGATIVE); URINE NITRATE Negative (NEGATIVE); URINE PROTEIN(semi-quant) Negative (NEGATIVE); URINE RBC 0-2 /hpf (0-2)
[2021-09-08 00:49] VITALS: BP 137/80; PULSE 73; TEMP 98.2
== END 2021-09-08 00:50 | disposition home or self-care (01) ==
LOC: COL.ER 18:03
PROVIDERS: Physician Assistant
DX: U07.1 COVID-19 (principal); K52.9 Noninfective gastroenteritis and colitis, unspecified; K50.90 Crohn's disease, unspecified, without complications; Z98.890 Other specified postprocedural states; Z79.899 Other long term (current) drug therapy
CPT/HCPCS: J2270; J2550; J7030; Q9967

== ENCOUNTER 2022-05-14 14:59 | Inpatient (IN) | payer OTHER ==
[2022-05-14] VITALS (8 sets, daily range): BP systolic 127–147; BP diastolic 80–100; PULSE 73–101; TEMP 98–98.7
[~2022-05-14] VITALS: Ht 182.9 cm; Wt 79.5 kg
[~2022-05-14 14:59] MED LIST changes: +PROMETHAZINE12.5 M5 PO
[2022-05-14 15:36] LABS: COLLECTION METHOD CLEAN CATCH
[2022-05-14 15:41] LABS: BASO # 0.1 K/mm3 (0.0-0.2); BASO % 0.5 % (0.0-2.0); EOS # 0.2 K/mm3 (0.0-0.7); EOS % 0.8 % (0.0-4.0); GRAN % 76.7 % (42.2-75.2); LYMPH # 2.7 K/mm3 (1.2-3.4); LYMPH % 13.8 % (20.0-51.0); MEAN CELL VOLUME 88 fl (80.0-100.0); MEAN CORPUSCULAR HGB CONC 37 g/dl (33.0-37.0); MEAN PLATELET VOLUME 9.1 fl (7.4-10.4); MONO # 1.4 K/mm3 (0.1-0.6); MONO % 7.4 % (1.7-9.3); PLATELET COUNT 403 K/mm3 (130-400); RED BLOOD COUNT 5.99 M/mm3 (4.20-5.60); REDCELL DISTRIBUTION WIDTH-CV 12.4 % (11.5-14.5)
[2022-05-14 15:42] LABS: HEMATOCRIT 52.6 % (42.0-52.0); HEMOGLOBIN 19.2 g/dl (13.5-18.0); MEAN CORPUSCULAR HEMOGLOBIN 32 pg (27-31)
[2022-05-14 15:50] LABS: MUCOUS Present (NOT PRESENT); SQUAMOUS EPITHELIAL None Seen /hpf (0-10); URINE APPEARANCE Clear (CLEAR/HAZY); URINE BACTERIA None Seen /hpf (NONE SEEN); URINE COLOR Yellow (YELLOW); URINE RBC 0-2 /hpf (0-2)
[2022-05-14 15:51] LABS: URINE BLOOD 1+ (NEGATIVE); URINE GLUCOSE Negative (NEGATIVE); URINE KETONE Negative (NEGATIVE); URINE NITRATE Negative (NEGATIVE); URINE PROTEIN(semi-quant) Negative (NEGATIVE); URINE UROBILINOGEN 0.2 E.U/dL (0.2-1.0)
[2022-05-14 15:58] LABS: BILIRUBIN,TOTAL 2.2 mg/dL (0.2-1.2); CALCIUM 10.3 mg/dL (8.4-10.2); CREATININE, serum 1.18 mg/dL (0.72-1.25); POTASSIUM 3.9 mmol/L (3.5-4.5); TOTAL PROTEIN 9.2 gm/dL (6.2-8.1)
--- NOTE | 2022-05-14 17:57 | NUR ---
PATIENT WAS ADMITTED TO SURGICAL UNIT AND ARRIVED AT 557PM. PATIENT IS ALERT AND ORIENTED. LUNG CLEAR IN ALL LOBES. BOWEL SOUND ACTIVE IN ALL 4 QUAD. TEND TO TOUCH. STOMACH IS DISTENDED. IV ON RIGHT AC (20G)NPO AT THIS TIME POSSIBLE SURGERY TOMORROW. MORPHINE SHRINK PIT SUPERVISOR IS ORDER. PATIENT HR IS SLIGHTLY TACHY 105.VITALS WAS 137/99 HR 96 RESP 20 TEMP 98.0 AND O2 AT 96%
[2022-05-14] MEDS ORDERED: SYNTHROID0.137 MG (18:01)
[2022-05-14] MEDS ORDERED: AMBIEN CR6.25 MG PO (18:02)
[2022-05-14] MEDS ORDERED: DAZIDOX10 MG PO (18:04)
--- NOTE | 2022-05-14 19:00 | NUR ---
PT RESTING IN BED A&0X4. NS STARTED TO RT F/A AT 125CC/HR. ATTEMPTING TO SET UP DOCUMENTATION COORDINATOR MS. PORTIONS OF MACHINE ARE NOT AVAILABLE AT THIS TIME. HEATHER SUPEVISOR LOOKING FOR APPROPRIATE PIECE. GAVE MS 2MG IV NOW D/T LOWER MID QUAD ABD PAIN. CALL LIGHT IN REACH BED ALARM SET.
--- NOTE | 2022-05-14 19:23 | NUR ---
[address] ON AND RUNNING ORDER. GAVE REPORT TO NIGHT NURSE CHRISS REGARDING TRAILER ASSEMBLER MORPHINE. PATIENT PAIN IS HIGH 10/10 ON STOMACH AREA
--- NOTE | 2022-05-14 20:39 | NUR ---
GAVE BOLUS 2MG MS DOSE VIA AUTO SERVICE STATION ATTENDANT MANUALLY. STILL LOOKING FOR MISSING PIECE. PAIN LEVEL 10/10. VSS.
--- NOTE | 2022-05-14 20:42 | NUR ---
DR CRUZ HERE TO EXAM PT. PROVIDED PLAN OF CARE. PT AGREEABLE.
--- NOTE | 2022-05-14 21:41 | NUR ---
PT RESTING NOW. NO DISTRESS. CONTINUED NPO.
--- NOTE | 2022-05-14 23:45 | NUR ---
PT RESTING. NO EVIDENCE OF DISTRESS.
[2022-05-15] VITALS (16 sets, daily range): BP systolic 114–145; BP diastolic 68–85; PULSE 73–87; TEMP 98–98.7
[2022-05-15] MEDS ORDERED: METHOTREXA2.5 MG/TAB PO (05:57)
[2022-05-15] MEDS ORDERED: REMICADE V100 MG/VIA IV (06:05)
--- NOTE | 2022-05-15 06:05 | NUR ---
PT DENIES NAUSEA. FASHION MARKETER MS CONTROLLING ABD PAIN UNLESS HE MOVES AROUND. DENIES PASSING FLATUS. PT RESTING IN BED IN RELAXED POSITION. WATCHING TV. DENIES NEEDS AT THIS TIME. CALL LIGHT IN REACH.
[2022-05-15 06:18] LABS: BASO % 0.2 % (0.0-2.0); GRAN # 8.9 K/mm3 (1.4-6.5); GRAN % 88.4 % (42.2-75.2); HEMATOCRIT 44.5 % (42.0-52.0); LYMPH # 0.9 K/mm3 (1.2-3.4); LYMPH % 8.4 % (20.0-51.0); MEAN CELL VOLUME 87 fl (80.0-100.0); MEAN CORPUSCULAR HEMOGLOBIN 32 pg (27-31); MEAN CORPUSCULAR HGB CONC 37 g/dl (33.0-37.0); MEAN PLATELET VOLUME 9.4 fl (7.4-10.4); MONO # 0.3 K/mm3 (0.1-0.6); MONO % 2.6 % (1.7-9.3); PLATELET COUNT 329 K/mm3 (130-400); RED BLOOD COUNT 5.11 M/mm3 (4.20-5.60); REDCELL DISTRIBUTION WIDTH-CV 12.3 % (11.5-14.5)
[2022-05-15 06:22] LABS: HEMOGLOBIN 16.4 g/dl (13.5-18.0)
[2022-05-15 06:32] LABS: CALCIUM 9.3 mg/dL (8.4-10.2); CREATININE, serum 0.83 mg/dL (0.72-1.25); MAGNESIUM 2.1 mg/dL (1.6-2.6); POTASSIUM 4.5 mmol/L (3.5-4.5)
--- NOTE | 2022-05-15 11:26 | NUR ---
SW met with patient to complete intake. Patient states that he lives in [facility] with spouse Sandie Mcginnis [phone]. Patient states that he does not utilize DME, is independent with ADL's, and does not obtain services from at this time. PCP is Dr. Graves at the [place] and obtains medications from [facility]. Patient provides that DPOA/HC is spouse. Patient plans to return to her home upon DC. SW will continue to follow. DC plan: home
--- NOTE | 2022-05-15 21:00 | NUR ---
PT RESTING IN BED. A&OX4. NS AT 125CC/HR TO RT F/A. TILE HELPER MS CONTROLLING ABD PAIN AT THIS TIME. SHIFT ASSESSMENT COMPLETE. CALL LIGHT IN REACH.
[2022-05-16] VITALS (8 sets, daily range): BP systolic 124–133; BP diastolic 78–87; PULSE 66–93; TEMP 97.4–98.2
--- NOTE | 2022-05-16 05:11 | NUR ---
PT RELATES ABD RUMBLING. LOUD BS PRESENT. NO FLATUS YET. NO NAUSEA.
[2022-05-16 06:58] LABS: BASO % 0.1 % (0.0-2.0); EOS % 0.3 % (0.0-4.0); GRAN # 12.5 K/mm3 (1.4-6.5); GRAN % 83.7 % (42.2-75.2); HEMATOCRIT 42.8 % (42.0-52.0); HEMOGLOBIN 15.1 g/dl (13.5-18.0); LYMPH # 1.3 K/mm3 (1.2-3.4); LYMPH % 8.6 % (20.0-51.0); MEAN CELL VOLUME 91 fl (80.0-100.0); MEAN CORPUSCULAR HEMOGLOBIN 32 pg (27-31); MEAN CORPUSCULAR HGB CONC 35 g/dl (33.0-37.0); MEAN PLATELET VOLUME 9.4 fl (7.4-10.4); MONO % 6.7 % (1.7-9.3); PLATELET COUNT 291 K/mm3 (130-400); REDCELL DISTRIBUTION WIDTH-CV 12.5 % (11.5-14.5)
[2022-05-16 07:15] LABS: ALBUMIN 3.7 gm/dL (3.5-5.0); BILIRUBIN,DIRECT 0.7 mg/dL (0.0-0.5); BILIRUBIN,TOTAL 1.9 mg/dL (0.2-1.2); CALCIUM 8.8 mg/dL (8.4-10.2); CREATININE, serum 0.82 mg/dL (0.72-1.25); POTASSIUM 4.3 mmol/L (3.5-4.5); TOTAL PROTEIN 6.8 gm/dL (6.2-8.1)
[2022-05-16 07:30] LABS: MAGNESIUM 2.2 mg/dL (1.6-2.6)
--- NOTE | 2022-05-16 08:56 | NUR ---
Patient resting in bed. Continue to rate his pain /. Deputy Director morphine per orders. Abdominal pain he reports as cramping. Bowel sound audible. Tolerating clears without nausea. Ivf per orders. Will monitor.
--- NOTE | 2022-05-16 10:20 | NUR ---
Patient sitting at edge of bed. Continues to deny passing flatus of stool. Reports pain managed at this time. Will monitor.
--- NOTE | 2022-05-16 10:57 | NUR ---
Patient provided with his dulcolax suppository (he wanted to insert himself). Instructed him to hold for 30 minutes. He report having suppositories in the past.
[2022-05-16 14:22] LABS: CLOSTRIDIUM DIFF A/B NEG; CLOSTRIDIUM DIFF A/B INTERP NonToxigenic C.diff
--- NOTE | 2022-05-16 15:43 | NUR ---
Tessa: Scientologist Situation: Ship Unloader stopped by room on rounds Background: Pt was resting and content Assessment: Pt has a strong tessa and has a large group of people praying for him. Ship Unloader prayed with Pt, Pt appreciated the visit. Recommendation: Ship Unloader will follow up as needed
--- NOTE | 2022-05-16 20:07 | NUR ---
Patient resting in bed. He has been independent in room today. Trying to be active in room. Patient continues to complain of gas pain & discomfort. Telephone Quotation Clerk morphine manages fairly well. He is requesting second suppository this evening, due to not having result patient would have liked from prior one. Patient did have small Bm this afternoon & stool sample was sent to lab, but not results since. He is tolerating clears without nausea, but taking it slow. He has been in contact with his providers at [facility] and has appt set up for this week to see them. He is hopful for discharge prior to appt. Report to alonzo Rasmussen
--- NOTE | 2022-05-16 20:45 | NUR ---
pt resting in bed on side, reports wanting to try and have a bm but wanting to let suppository settle in longer. meds given and assessment complete. LIVESTOCK DEALER in use and NS infusing at 75ml/hr. no needs at this time. call light in reach.
--- NOTE | 2022-05-16 22:00 | NUR ---
pt reports passing gas but no bm yet. pain is controlled w kitchen food assembler. no needs at this time.
[2022-05-17 00:11] VITALS: BP 138/86; PULSE 64; TEMP 98.1
[2022-05-17 00:17] VITALS: BP 138/86; PULSE 64
[2022-05-17 03:44] VITALS: BP 125/76; PULSE 56; TEMP 97.6
[2022-05-17 04:03] VITALS: BP 125/76; PULSE 56
--- NOTE | 2022-05-17 06:05 | NUR ---
pt reports feeling better this morning. able to pass gas and had two bms throughout the night. no complaints of nausea or pain.
[2022-05-17 06:56] LABS: CALCIUM 8.6 mg/dL (8.4-10.2); CREATININE, serum 0.84 mg/dL (0.72-1.25); POTASSIUM 4.1 mmol/L (3.5-4.5)
[2022-05-17 07:00] LABS: GRAN # 9.3 K/mm3 (1.4-6.5); GRAN % 82.3 % (42.2-75.2); HEMATOCRIT 42.1 % (42.0-52.0); HEMOGLOBIN 14.8 g/dl (13.5-18.0); LYMPH # 1.1 K/mm3 (1.2-3.4); LYMPH % 9.9 % (20.0-51.0); MEAN CELL VOLUME 90 fl (80.0-100.0); MEAN CORPUSCULAR HEMOGLOBIN 32 pg (27-31); MEAN CORPUSCULAR HGB CONC 35 g/dl (33.0-37.0); MEAN PLATELET VOLUME 9.5 fl (7.4-10.4); MONO # 0.8 K/mm3 (0.1-0.6); MONO % 7.3 % (1.7-9.3); PLATELET COUNT 276 K/mm3 (130-400); RED BLOOD COUNT 4.67 M/mm3 (4.20-5.60); REDCELL DISTRIBUTION WIDTH-CV 12.5 % (11.5-14.5)
[2022-05-17 07:50] VITALS: BP 134/81; PULSE 66; TEMP 98.1
[2022-05-17 08:00] VITALS: BP 134/81; PULSE 66
[2022-05-17] MEDS ORDERED: FLAGYL500 MG PO (08:24)
[2022-05-17] MEDS ORDERED: ZOFRAN ODT4 MG PO (08:25)
[2022-05-17] MEDS ORDERED: CIPRO750 MG PO (08:27)
[2022-05-17] MEDS ORDERED: PREDNISONE20 MG PO (08:29)
[2022-05-17] MEDS ORDERED: PERCOCET 325 MG1 TA2 PO (08:32)
--- NOTE | 2022-05-17 09:30 | NUR ---
PATIENT ALERT AND ORIENTED X4. VSS. PATIENT HERE FOR SBO/SEPSIS. ASSESSMENT PERFORMED. BOWEL SOUNDS ACTIVE X4. LUNGS CTA. SUPERVISOR ORNAMENTAL IRONWORKING RUNNING IN RIGHT FA WITH NS AT 75. PATIENT DENIES ANY FURTHER NEEDS. CALL LIGHT WITHIN REACH.
--- NOTE | 2022-05-17 09:31 | NUR ---
BUSINESS CENTER REPRESENTATIVE PUMP DC'D. IV TO RIGHT FA INT.
--- NOTE | 2022-05-17 10:54 | NUR ---
DISCHARGE INSTRUCTIONS PROVIDED. PATIENT EDUCATION GIVEN. IV DC'D. FOLLOW UP APPOINTMENTS DISCUSSED. MEDICATIONS REVIEWED. PATIENT DENIES ANY QUESTIONS OR CONCERNS. PATIENT ESCORTED OUT VIA WHEELCHAIR.
== END 2022-05-17 10:30 | disposition home or self-care (01) | DRG 872 ==
LOC: COL.ER 14:59 → SURG 16:55
PROVIDERS: Emergency Medicine; Internal Medicine Gastroenterology; Physician Assistant; ADMIT Internal Medicine
DX: A41.9 Sepsis, unspecified organism (principal); K50.912 Crohn's disease, unspecified, with intestinal obstruction; G43.909 Migraine, unspecified, not intractable, without status migrainosus; I10 Essential (primary) hypertension; K52.9 Noninfective gastroenteritis and colitis, unspecified; E80.6 Other disorders of bilirubin metabolism; E03.9 Hypothyroidism, unspecified; K21.9 Gastro-esophageal reflux disease without esophagitis; Z90.49 Acquired absence of other specified parts of digestive tract; Z79.890 Hormone replacement therapy; Z23 Encounter for immunization
CPT/HCPCS: C9113; J0696; J1170; J1650; J2270; J2405; J2930; J7030; Q9967